=== PATIENT | male | born 1970 | race Caucasian/White ===

== ENCOUNTER → 2023-07-11 | Outpatient (CLI) | payer MEDICAID | END | disposition home or self-care (01) | LOC: MRI 08:53 | PROVIDERS: ATTEND Podiatrist Foot & Ankle Surgery | DX: M19.072 Primary osteoarthritis, left ankle and foot (principal); M79.672 Pain in left foot; M76.60 Achilles tendinitis, unspecified leg; M24.573 Contracture, unspecified ankle; M76.70 Peroneal tendinitis, unspecified leg; M72.2 Plantar fascial fibromatosis; M19.071 Primary osteoarthritis, right ankle and foot; M21.42 Flat foot [pes planus] (acquired), left foot; M21.41 Flat foot [pes planus] (acquired), right foot; M76.62 Achilles tendinitis, left leg; M76.61 Achilles tendinitis, right leg; M92.60 Juvenile osteochondrosis of tarsus, unspecified ankle; M10.9 Gout, unspecified; R60.9 Edema, unspecified | CPT/HCPCS: 73718; 73721 ==

== ENCOUNTER 2023-09-11 07:02 | Day surgery (SDC) | payer MEDICAID ==
[2023-09-11] VITALS (8 sets, daily range): BP systolic 134–174; BP diastolic 78–104; PULSE 65–84; RESP 14–16; TEMP 98.3; O2SAT 92–96
[~2023-09-11] VITALS: Ht 193 cm; Wt 144.8 kg
[2023-09-11] MEDS ORDERED: normal saline 1000ml 1,000 ML IV SCH (07:25)
[2023-09-11] MEDS ORDERED: HYDR25TA5 PO (07:58)
[2023-09-11] MEDS ORDERED: CHOL50CA2 PO (07:58)
[2023-09-11] MEDS ORDERED: RIVA20TA PO (07:58)
[2023-09-11] MEDS ORDERED: ASCO500C14 PO (07:58)
[2023-09-11] MEDS ORDERED: CYCL5TAB PO (07:58)
== END 2023-09-11 09:30 | disposition home or self-care (01) ==
LOC: SSTAY O 07:02
PROVIDERS: ATTEND Radiology Diagnostic Radiology
DX: E04.1 Nontoxic single thyroid nodule (principal); I10 Essential (primary) hypertension; Z79.01 Long term (current) use of anticoagulants; Z79.899 Other long term (current) drug therapy
CPT/HCPCS: 10005